=== PATIENT | male | born 1950 | race Caucasian/White ===

== ENCOUNTER 2017-08-29 07:39 | Day surgery (SDC) | payer MEDICARE, BC ==
[2017-08-27 14:24] LABS: BASOPHILS % (AUTO) 0.6 % (0-1); EOSINOPHILS # (AUTO) 0.2 X10'3 (0-0.9); EOSINOPHILS % (AUTO) 3.2 % (0-6); LYMPHOCYTES # (AUTO) 1.6 X10'3 (1.1-4.8); LYMPHOCYTES % (AUTO) 29.5 % (21-51); MEAN CORPUSCULAR HEMOGLOBIN 30.3 PG (27.0-31.0); MEAN CORPUSCULAR HGB CONC 34.6 % (33.0-36.5); MEAN CORPUSCULAR VOLUME 87.7 FL (78-98); MEAN PLATELET VOLUME 7.6 FL (7.4-10.4); MONOCYTES # (AUTO) 0.6 X10'3 (0-0.9); MONOCYTES % (AUTO) 10.6 % (2-12); NEUTROPHILS % (AUTO) 56.1 % (42-75); PRE OP HEMATOCRIT 46.3 % (42.0-52.0); PRE OP PLATELET COUNT 277 X10'3 (140-440); RED BLOOD COUNT 5.28 X10'6 (4.70-6.10); RED CELL DISTRIBUTION WIDTH 13.5 % (11.5-14.5)
[2017-08-27 14:38] LABS: ALBUMIN 4.1 G/DL (3.4-5.0); ALBUMIN/GLOBULIN RATIO 1.2 (1.1-1.5); ALKALINE PHOSPHATASE 71 IU/L (46-116); BLOOD UREA NITROGEN 18 MG/DL (7-18); BUN/CREATININE RATIO 18.2 (5.4-32.0); CALCIUM 9.3 MG/DL (8.5-10.1); CHLORIDE 103 MMOL/L (99-107); CREATININE 0.99 MG/DL (0.60-1.10); PRE OP ALT 35 U/L (30-65); PRE OP ANION GAP 9 (8-16); PRE OP AST 22 U/L (10-37); PRE OP BILIRUB, TOTAL 0.4 MG/DL (0.0-1.0); PRE OP GLUCOSE 104 MG/DL (70-104); PRE OP SODIUM 139 MMOL/L (135-145); TOTAL CARBON DIOXIDE 26.7 MMOL/L (24-32); TOTAL PROTEIN 7.5 G/DL (6.4-8.2); eGFR 75 ML/MIN
[~2017-08-29] VITALS: Ht 162.6 cm; Wt 76.7 kg
[~2017-08-29 07:39] MED LIST: BUPIVAcaine/PF 2.5 mg/ml (0.25%) 30ml vial ONE; CLOP75TA15 PO; GLUC1TAB40 PO; MULT-1141 PO; OMEG1CAP PO; [UNRECOGNIZED DRUG - CODE] PO; ceFAZolin 2gm in dextrose, iso 100 ML IV ONE; famotidine 20mg tablet PO ONE; ringers solution, lacted 1,000 ML IV SCH
[2017-08-29] MEDS ORDERED: LIDOcaine 0.5% (5mg/ml) 50ml vial ONE (08:44)
[2017-08-29] MEDS ORDERED: fentaNYL/PF 50MCG/1 ML 2ML syringe ONE (10:00)
[2017-08-29] MEDS ORDERED: midazolam 2 mg/2 ml injection ONE (10:00)
[2017-08-29] MEDS ORDERED: propofol inj 20 ML IV ONE (10:03)
[2017-08-29 10:48] VITALS: BP 143/94
[2017-08-29 10:51] VITALS: BP_SYST 141; BP_SYST 143; BP_DIAS 79; BP_DIAS 94
[2017-08-29] MEDS ORDERED: ringers solution, lacted 1,000 ML IV SCH (10:54)
[2017-08-29] MEDS ORDERED: fentaNYL/PF 50MCG/1 ML 2ML syringe IV PRN ×2 (10:55)
[2017-08-29] MEDS ORDERED: morphine 4 MG/ML inj SYRINge IV PRN ×2 (10:55)
[2017-08-29] MEDS ORDERED: meperidine/PF 50mg/ml syringe IV PRN (10:55)
[2017-08-29] MEDS ORDERED: proCHLORperazine 10 MG/2 ml inj IV PRN (10:55)
[2017-08-29] MEDS ORDERED: ondansetron/PF 4mg/2ml inj IV PRN (10:55)
[2017-08-29 11:01] VITALS: BP 131/85
[2017-08-29 11:11] VITALS: BP 132/76
[2017-08-29] MEDS ORDERED: HYDROcodone/acetaminophen 10/325mg tab PO PRN ×2 (11:20)
== END 2017-08-29 11:31 | disposition home or self-care (01) ==
LOC: PAS 07:39
PROVIDERS: ATTEND Orthopaedic Surgery Hand Surgery
DX: M18.11 Unilateral primary osteoarthritis of first carpometacarpal joint, right hand (principal); M25.741 Osteophyte, right hand; M20.091 Other deformity of right finger(s); I25.2 Old myocardial infarction; Z79.82 Long term (current) use of aspirin; Z98.52 Vasectomy status; Z98.890 Other specified postprocedural states; Z79.01 Long term (current) use of anticoagulants; Z72.89 Other problems related to lifestyle; Z79.899 Other long term (current) drug therapy; Z86.73 Personal history of transient ischemic attack (TIA), and cerebral infarction without residual deficits
CPT/HCPCS: 25445; 36415; 80053; 85025; 85610; 85730; 93005; A6449; C1713; J0690; J2001; J2250; J2704; J3010; J3490; J7120; L8630; A7000

== ENCOUNTER 2023-03-04 17:23 | Emergency (ER) | payer MEDICARE, OTHER ==
[~2023-03-04] VITALS: Ht 167.6 cm; Wt 77.4 kg
[~2023-03-04 17:23] MED LIST changes: +ASPI81TA52 PO; -BUPIVAcaine/PF 2.5 mg/ml (0.25%) 30ml vial ONE; +LOP25T PO; +NAPR1TAB28 PO; -OMEG1CAP PO; +OMEG1CAP61 PO; -ceFAZolin 2gm in dextrose, iso 100 ML IV ONE; -famotidine 20mg tablet PO ONE; -ringers solution, lacted 1,000 ML IV SCH
[2023-03-04 17:28] VITALS: TEMP 97.7
[2023-03-04 17:59] LABS: BASOPHILS # (AUTO) 0.1 X10'3 (0-0.2); BASOPHILS % (AUTO) 0.9 % (0-1); EOSINOPHILS # (AUTO) 0.1 X10'3 (0-0.9); EOSINOPHILS % (AUTO) 1.6 % (0-6); HEMATOCRIT 44.6 % (42.0-52.0); HEMOGLOBIN 15.4 g/dl (14.0-17.9); LYMPHOCYTES # (AUTO) 1.5 X10'3 (1.1-4.8); LYMPHOCYTES % (AUTO) 24.5 % (21-51); MEAN CORPUSCULAR HEMOGLOBIN 30.9 PG (27.0-31.0); MEAN CORPUSCULAR HGB CONC 34.5 g/dL (33.0-36.5); MEAN CORPUSCULAR VOLUME 89.6 FL (78-98); MEAN PLATELET VOLUME 7.3 FL (7.4-10.4); MONOCYTES # (AUTO) 0.6 X10'3 (0-0.9); MONOCYTES % (AUTO) 10.9 % (2-12); NEUTROPHILS # (AUTO) 3.7 X10'3 (1.8-7.7); NEUTROPHILS % (AUTO) 62.1 % (42-75); PLATELET COUNT 274 X10'3 (140-440); RED BLOOD COUNT 4.98 X10'6 (4.70-6.10); RED CELL DISTRIBUTION WIDTH 13.4 % (11.5-14.5); WHITE BLOOD COUNT 5.9 X10'3 (4.5-11.0)
[2023-03-04 18:11] LABS: APTT 29 SECONDS (22-32); PROTHROMBIN TIME 10.3 SECONDS (9.0-12.0)
[2023-03-04 18:14] LABS: ALANINE AMINOTRANSFERASE 35 U/L (12-78); ALBUMIN 3.9 G/DL (3.4-5.0); ALBUMIN/GLOBULIN RATIO 1.1 (1.1-1.5); ALKALINE PHOSPHATASE 68 IU/L (46-116); ANION GAP 9 (8-16); ASPARTATE AMINO TRANSFERASE 25 U/L (10-37); BILIRUBIN,TOTAL 0.3 MG/DL (0.1-1.0); BLOOD UREA NITROGEN 12 MG/DL (7-18); BUN/CREATININE RATIO 11.3 (10.0-20.0); CALCIUM 9.5 MG/DL (8.5-10.1); CHLORIDE 104 MMOL/L (99-107); CREATININE 1.06 MG/DL (0.60-1.10); GLUCOSE 104 MG/DL (70-104); POTASSIUM 3.9 MMOL/L (3.5-5.1); SODIUM 138 MMOL/L (135-145); TOTAL CARBON DIOXIDE 25.3 MMOL/L (24-32); TOTAL PROTEIN 7.4 G/DL (6.4-8.2); eCRCL 54 ML/MIN; eGFR 68 ML/MIN
[2023-03-04 19:52] LABS: BILIRUBIN,URINE NEGATIVE (Neg); CLARITY,URINE CLEAR (Clear); COLOR,URINE YELLOW (Yellow); GLUCOSE, URINE NEGATIVE (Neg); KETONES,URINE NEGATIVE (Neg); LEUKOCYTE ESTERASE ,URINE NEGATIVE (Neg); NITRITES, URINE NEGATIVE (Neg); OCCULT BLOOD,URINE NEGATIVE (Neg); PH,URINE 6.5 (4.8-8.0); PROTEIN,URINE NEGATIVE (Neg); UROBILINOGEN,URINE 0.2 E.U/dL (0.2-1.0)
[2023-03-04 20:04] LABS: UA COLLECTION TYPE VOIDED
[2023-03-04 21:31] VITALS: BP 142/95; PULSE 61; RESP 18; O2SAT 96
== END 2023-03-04 21:28 | disposition home or self-care (01) ==
LOC: ER 17:24
DX: R20.0 Anesthesia of skin (principal); E78.00 Pure hypercholesterolemia, unspecified; Z79.899 Other long term (current) drug therapy
CPT/HCPCS: 36415; 70450; 71045; 80053; 81003; 82948; 84145; 85025; 85610; 85730; 93005; 99285

== ENCOUNTER 2024-02-25 03:30 | Emergency (ER) | payer MEDICARE, OTHER ==
[~2024-02-25] VITALS: Ht 167.6 cm; Wt 70.5 kg
[2024-02-25 03:32] VITALS: TEMP 97.7
[2024-02-25 04:08] LABS: BASOPHILS % (AUTO) 0.8 % (0-1); EOSINOPHILS # (AUTO) 0.1 X10'3 (0-0.9); EOSINOPHILS % (AUTO) 2.7 % (0-6); HEMATOCRIT 44.5 % (42.0-52.0); HEMOGLOBIN 14.8 g/dl (14.0-17.9); LYMPHOCYTES # (AUTO) 1.2 X10'3 (1.1-4.8); LYMPHOCYTES % (AUTO) 30.9 % (21-51); MEAN CORPUSCULAR HEMOGLOBIN 30.1 PG (27.0-31.0); MEAN CORPUSCULAR HGB CONC 33.2 g/dL (33.0-36.5); MEAN CORPUSCULAR VOLUME 90.7 FL (78-98); MEAN PLATELET VOLUME 7.2 FL (7.4-10.4); MONOCYTES # (AUTO) 0.5 X10'3 (0-0.9); MONOCYTES % (AUTO) 13.8 % (2-12); NEUTROPHILS % (AUTO) 51.8 % (42-75); PLATELET COUNT 253 X10'3 (140-440); RED BLOOD COUNT 4.91 X10'6 (4.70-6.10); RED CELL DISTRIBUTION WIDTH 13.5 % (11.5-14.5)
[2024-02-25 04:17] LABS: ALANINE AMINOTRANSFERASE 27 U/L (12-78); ALBUMIN 3.5 G/DL (3.4-5.0); ALBUMIN/GLOBULIN RATIO 1.1 (1.1-1.5); ALKALINE PHOSPHATASE 59 IU/L (46-116); ANION GAP 8 (8-16); ASPARTATE AMINO TRANSFERASE 25 U/L (10-37); BILIRUBIN,TOTAL 0.4 MG/DL (0.1-1.0); BLOOD UREA NITROGEN 17 MG/DL (7-18); BUN/CREATININE RATIO 16.5 (10.0-20.0); CALCIUM 9.1 MG/DL (8.5-10.1); CHLORIDE 104 MMOL/L (99-107); CREATININE 1.03 MG/DL (0.60-1.10); GLUCOSE 102 MG/DL (70-104); POTASSIUM 3.7 MMOL/L (3.5-5.1); SODIUM 138 MMOL/L (135-145); TOTAL CARBON DIOXIDE 26.3 MMOL/L (24-32); TOTAL PROTEIN 6.6 G/DL (6.4-8.2); eCRCL 55 ML/MIN; eGFR 70 ML/MIN
[2024-02-25 04:26] LABS: PRO BRAIN NATRIURETIC PEPTIDE 133 PG/ML (0-450)
[2024-02-25 05:07] VITALS: BP 162/96; PULSE 59; RESP 17; O2SAT 96
== END 2024-02-25 05:08 | disposition home or self-care (01) ==
LOC: ER 03:32
DX: R07.9 Chest pain, unspecified (principal); E78.00 Pure hypercholesterolemia, unspecified; Z79.82 Long term (current) use of aspirin; Z79.899 Other long term (current) drug therapy; Z86.73 Personal history of transient ischemic attack (TIA), and cerebral infarction without residual deficits
CPT/HCPCS: 36415; 71045; 80053; 83880; 84484; 85025; 93005; 99285

== ENCOUNTER 2024-07-20 09:44 | Emergency (ER) | payer MEDICARE, OTHER ==
[~2024-07-20] VITALS: Ht 170.2 cm; Wt 77.3 kg
[2024-07-20] MEDS ORDERED: LIDO700A32 TOP (10:56)
[2024-07-20] MEDS: LIDOcaine 5% patch TP ONE (10:56)
[2024-07-20] MEDS: ketorolac trometh 15mg/ml vial 15 MG/ML ML IM ONE (10:56)
[2024-07-20 11:23] VITALS: BP 142/68; PULSE 64; RESP 16; TEMP 97.8; O2SAT 97
== END 2024-07-20 11:24 | disposition home or self-care (01) ==
LOC: ER 09:44
DX: R07.89 Other chest pain (principal); E78.00 Pure hypercholesterolemia, unspecified; Z86.73 Personal history of transient ischemic attack (TIA), and cerebral infarction without residual deficits; Z79.82 Long term (current) use of aspirin
CPT/HCPCS: 71101; 96372; 99284; J1885

== ENCOUNTER 2024-12-03 14:56 | Emergency (ER) | payer MEDICARE, OTHER ==
[~2024-12-03] VITALS: Ht 167.6 cm; Wt 76.0 kg
[~2024-12-03 14:56] MED LIST changes: +LIDO-52 TOP
[2024-12-03 15:01] VITALS: BP 162/84; PULSE 77; RESP 16; TEMP 98; O2SAT 97
--- NOTE | 2024-12-03 15:08 | ELECTROCARDIOGRAPH REPORT ---
[facility] Test Date: 2024-12-03 Test Time: 14:57:17 Pat Name: MARCELLO CASTILLO Department: EMERGENCY ROOM Room: Gender: M Sanforizer: PM : 1950 Requested By: MARCELLO MARROQUIN Order Number: [id number] Reading MD: Dr. Cheo Swnason Measurements Intervals [place] Rate: 79 P: 5 HI: 204 QRS: -39 QRSD: 119 T: 97 QT: 375 QTc: 430 Interpretive Statements A-V dual-paced complexes w/ some inhibition No further analysis attempted due to paced rhythm Baseline wander in lead(s) V1 Electronically Signed On 12-03-2024 18:16:[address] Cheo Swanson Please click the below link to view image of tracing.
--- NOTE | 2024-12-03 15:34 | RADIOLOGY REPORT ---
CHEST RADIOGRAPH Indication: CP Technique: Single frontal view of the chest was obtained COMPARISON: DI CHEST,SINGLE VIEW on DOS: 02/25/24, DI CHEST,SINGLE VIEW on DOS: 03/04/23, CHEST,SINGL E VIEW on DOS: 06/27/19 FINDINGS: Lines and Tubes: None Lungs: Clear Pleura: No effusion. No pneumothorax. Cardiomediastinal contours: Unremarkable Bones: Unremarkable IMPRESSION: No acute disease.
[2024-12-03 16:24] LABS: MEAN PLATELET VOLUME 7.6 FL (7.4-10.4); RED CELL DISTRIBUTION WIDTH 13.3 % (11.5-14.5)
[2024-12-03 16:31] LABS: CREATININE 1.02 MG/DL (0.60-1.10); PRO BRAIN NATRIURETIC PEPTIDE 69 PG/ML (0-450); TOTAL CARBON DIOXIDE 25.0 MMOL/L (24-32); eCRCL 56 ML/MIN; eGFR 71 ML/MIN
--- NOTE | 2024-12-03 17:01 | Physician Documentation ---
History of Present Illness ~ Chief Complaint: Chest Pain Stated Complaint: CP Time Seen by MD: 16:53 Primary Medical Doctor: RAMONE JAY (NEURO-[place]) HPI Patient is seen today with complaints of chest pain for a day or so. Patient denies any significant aggravating or relieving factors. Patient states the chest pain has actually resolved significantly since being here in the ED. patient does admit to history of TIAs multiple in the past but denies any previous FL. patient denies any arm pain. Patient denies any nausea or vomiting or abdominal pain or shortness of breath or any other symptoms. Patient admits to previous hernia surgery a couple of months ago. He has no other concern or complaint at this time. Medication Reconciliation Allergies: Coded Allergies: No Known Allergies (Unverified , 12/03/24) Scheduled Aspirin (Aspirin EC), 1 TAB PO DAILY, (Reported) Clopidogrel Bisulfate (Plavix), 75 MG PO DAILY, (Reported) Gluc Hcl/Msm/C/Mn/[place]/Ging (Msm Glucosamine Complex Tab), 1 EACH PO DAILY, (Reported) Lamotrigine (Lamotrigine), 200 MG PO BID, (Reported) Lidocaine (Lidoderm), 1 PATCH TOP DAILY Metoprolol Tartrate* (Lopressor tablet*), 0.5 TAB PO Q12H Mu-Vits-Min Th/Lycopene/Lutein (Centrum Silver Tablet), 1 EACH PO DAILY, (Reported) [place]-3 Acid Ethyl Esters* (Lovaza*), 1 GM PO DAILY, (Reported) Miscellaneous Medications Naproxen Na-Diphenhydramin HCl (Aleve Pm Caplet), 2 TAB PO, (Reported) Past Medical History Past Medical History: CVA/TIA/Stroke, Seizures, *CARDIOVASCULAR*, High Cholesterol Past Surgical History: noncontributory Alcohol Use: None Drug Use: none Lives with: Spouse Lives In: Home Review of Systems Constitutional: Denies: chills, fever, weakness Eyes: Denies: pain, blurred vision ENT: Denies: ear pain, nose pain, throat pain, mouth pain Respiratory: Denies: cough, shortness of breath Cardiovascular: Denies: chest pain, palpitations Gastrointestinal: Denies: abdominal pain, nausea, vomiting Genitourinary: Denies: burning, dysuria Male Genitalia: Denies: penile discharge, testicular pain Neurological: Denies: headache, dizziness Musculoskeletal: Denies: pain, swelling Integumentary: Denies: rash, lesions Allergic/Immunologic: Denies: hives, itching Hematologic/Lymphatic: Denies: no symptoms reported Psychiatric: Denies: depression, anxiety Physical Exam Vital Signs: Temperature: 98.0, Source: Temporal, Heart Rate: 77, Respiratory Rate: 16, BP: 162/84, Pulse Oximetry: 97, Weight: 76.000 Oxygen Flow Rate: 0 Progress Results/Orders Results/Orders Vital Signs 12/03/24 15:01 Temp 98.0 Pulse 77 Resp 16 B/P (MAP) 162/84 Pulse Ox 97 O2 Flow Rate 0 Laboratory Tests Test 12/03/24 16:01 White Blood Count 4.8 Red Blood Count 4.79 Hemoglobin 14.7 Hematocrit 42.4 Mean Corpuscular Volume 88.5 Mean Corpuscular Hemoglobin 30.8 Mean Corpuscular Hemoglobin Concent 34.7 Red Cell Distribution Width 13.3 Platelet Count 292 Mean Platelet Volume 7.6 Neutrophils (%) (Auto) 66.6 Lymphocytes (%) (Auto) 20.7 L Monocytes (%) (Auto) 10.3 Eosinophils (%) (Auto) 1.4 Basophils (%) (Auto) 1.0 Neutrophils # (Auto) 3.2 Lymphocytes # (Auto) 1.0 L Monocytes # (Auto) 0.5 Eosinophils # (Auto) 0.1 Basophils # (Auto) 0.0 CBC Comment Sodium Level 135 Potassium Level 3.8 Chloride Level 104 Carbon Dioxide Level 25.0 Anion Gap 6 L Blood Urea Nitrogen 19 H Creatinine 1.02 Estimated GFR/1.73 m2 71 BUN/Creatinine Ratio 18.6 Glucose Level 141 H Calcium Level 8.8 Troponin I High Sensitivity 12 Pro-B-Type Natriuretic Peptide 69 Albumin 3.9 Chemistry Comments EKG/XRAY/CT/US/VASC/MRI EKG : Additional Comment EKG interpreted by myself today shows regular rate at 79 beats per minute, AV dual paced complexes, no ST segment elevation or sign of ischemia. Chest X-Ray : Additional Comments X-ray interpreted by myself today shows no sign of large effusion, no large infiltrate, normal mediastinum. DIAGNOSTIC RADIOLOGY Patient: MARCELLO CASTILLO Medical Record: [id number] [facility] : 1950, Age: 74 Sex: Male Location: ER Patient Status: REG ER Service Date/Time: 12/03/24/ 1506 Ordering Physician: MARCELLO MARROQUIN MD Exam: CHEST,SINGLE VIEW CHEST RADIOGRAPH Indication: CP Technique: Single frontal view of the chest was obtained COMPARISON: DI CHEST,SINGLE VIEW on DOS: 02/25/24, DI CHEST,SINGLE VIEW on DOS: 03/04/23, CHEST,SINGLE VIEW on DOS: 06/27/19 FINDINGS: Lines and Tubes: None Lungs: Clear Pleura: No effusion. No pneumothorax. Cardiomediastinal contours: Unremarkable Bones: Unremarkable IMPRESSION: No acute disease. Electronically Signed by:MYNOR IVORY MD Date & Time: 12/03/24 1532 Dictated by: MYNOR IVORY MD Dictation date and time: 12/03/24 1510 Primary Care Provider: NO PRIMARY CARE PROVIDER cc: MARCELLO MARROQUIN MD ~ Heart Score: Heart Score Response (Comments) Value History Slightly Suspicious 0 EKG Normal 0 Age >65 2 Risk Factors 1 or 2 risk factors 1 Troponin Normal limit 0 Total 3 Medical Decision Making Findings Patient is seen today with complaints of chest pain for a day or so. Patient denies any significant aggravating or relieving factors. Patient states the chest pain has actually resolved significantly since being here in the ED. patient does admit to history of TIAs multiple in the past but denies any previous FL. patient denies any arm pain. Patient denies any nausea or vomiting or abdominal pain or shortness of breath or any other symptoms. Patient admits to previous hernia surgery a couple of months ago. He has no other concern or complaint at this time. Patient did have unremarkable EKG findings and chest x-ray unremarkable and troponins negative. Patient declined 2nd troponin draw. Patient declined admission for further eval by hospitalist. Patient will follow up with primary care for referral to Cardiology for further eval and treatment. Patient will return to ED with any worsening, concerning or changing symptoms. Departure Disposition: HOME / SELF CARE / HOMELESS Impression: Primary Impression: Chest pain Qualified Codes: R07.9 - Chest pain, unspecified Condition: Improved Discharge Instructions: Nonspecific Chest Pain, Adult Additional Instructions: Patient did have unremarkable EKG findings and chest x-ray unremarkable and troponins negative. Patient declined 2nd troponin draw. Patient declined admission for further eval by hospitalist. Patient will follow up with primary care for referral to Cardiology for further eval and treatment. Patient will return to ED with any worsening, concerning or changing symptoms. Referrals: NO PRIMARY CARE PROVIDER (PCP) Additional Comment Additional Comment Patient declined admission for further eval and treatment by hospitalist team. Signature Scribe Signature: No scribe Attestation: No scribe [facility] Dec 03, 2024 17:01
== END 2024-12-03 17:24 | disposition home or self-care (01) ==
LOC: ER 14:56
DX: R07.9 Chest pain, unspecified (principal); E78.00 Pure hypercholesterolemia, unspecified; R06.02 Shortness of breath
CPT/HCPCS: 36415; 71045; 80048; 83880; 84484; 85025; 93005; 99285

== ENCOUNTER 2025-01-04 09:09 | Inpatient (IN) | payer MEDICARE, OTHER ==
[~2025-01-04] VITALS: Ht 167.6 cm; Wt 74.7 kg
--- NOTE | 2025-01-04 09:31 | Physician Documentation ---
History of Present Illness ~ Chief Complaint: Stroke Alert Stated Complaint: LEFT SIDE NUMBNESS Time Seen by MD: 09:27 Primary Medical Doctor: ARMONE JAY (NEURO-[place]) HPI 74-year-old male, history of reported TIA and seizures, who presents with left- sided weakness He tells me he felt normal when he woke up this morning. His symptoms started at around 8:00 a.m.. He says he was outside, when he felt like he could not move his left side normal. He reports having left-sided headache, and his left arm and leg were not working normal. He thought he was going to fall down. Currently, he feels a little bit better. He still has some pain in the left side of his head and feels like the left side of his body is numb. He denies any current visual changes. No trouble with speaking clearly. He is able to move his arms and legs currently. His states that when she saw him he seemed a little bit disoriented and seemed to have some trouble talking. He is on lamotrigine for a very distant history of seizures Medication Reconciliation Allergies: Coded Allergies: No Known Allergies (Unverified , 12/03/24) Scheduled Aspirin (Aspirin EC), 1 TAB PO DAILY, (Reported) Clopidogrel Bisulfate (Plavix), 75 MG PO DAILY, (Reported) Diltiazem HCl (Diltiazem ER), 1 CAP PO DAILY, (Reported) Gluc Hcl/Msm/C/Mn/[place]/Ging (Msm Glucosamine Complex Tab), 1 EACH PO DAILY, (Reported) Lamotrigine (Lamotrigine), 200 MG PO BID, (Reported) Lidocaine (Lidoderm), 1 PATCH TOP DAILY Miscellaneous Medications Naproxen Na-Diphenhydramin HCl (Aleve Pm Caplet), 2 TAB PO, (Reported) Discontinued Medications Metoprolol Tartrate* (Lopressor tablet*), 0.5 TAB PO Q12H Discontinued Reason: patient no longer taking Mu-Vits-Min Th/Lycopene/Lutein (Centrum Silver Tablet), 1 EACH PO DAILY, (Reported) Discontinued Reason: patient no longer taking [place]-3 Acid Ethyl Esters* (Lovaza*), 1 GM PO DAILY, (Reported) Discontinued Reason: patient no longer taking Past Medical History Past Medical History: CVA/TIA/Stroke, Seizures, *CARDIOVASCULAR*, High Cholesterol Past Surgical History: noncontributory Alcohol Use: None Drug Use: none Lives with: Spouse Lives In: Home Review of Systems Constitutional: Denies: fever Neurological: Reports: headache, left sided numbness, left sided weakness Physical Exam Vital Signs: Temperature: 98.0, Source: Temporal, Heart Rate: 75, Respiratory Rate: 18, BP: 167/104, Pulse Oximetry: 96, Weight: 74.650 Oxygen Flow Rate: 0 General Appearance General: This is a pleasant and alert older man sitting comfortably in a chair, at bedside HEENT: Atraumatic, oropharynx is moist Heart: Regular rate and rhythm, normal-appearing peripheral perfusion Lungs: normal work of breathing, normal oxygen saturation on room air Neuro: Alert and oriented, speech is clear currently. Possible mild left lower facial droop. Normal sensation to light touch in the distributions of the face. Grossly normal strength in the upper and lower extremities. No reported numbness to light touch in the left arm or leg. Psychiatric: Calm and cooperative with exam Progress Results/Orders Results/Orders Orders - NAOMIE TIDWELL MD Monitor (01/04/25 09:22) 2 Large Bore Ivs (01/04/25 09:22) Chest,Single View (01/04/25 09:22) Accucheck (01/04/25 09:22) Ct Stroke Alert (01/04/25 09:37) BMP (01/04/25 09:22) [place] Prov.Neuro Consult (01/04/25 09:22) Cta Neck/Head (01/04/25 09:37) Page Hospitalist (01/04/25 09:48) Hgb A1c (01/04/25 09:24) TSH (01/04/25 09:24) Completed Orders - NAOMIE TIDWELL MD Cbc/Diff (01/04/25 09:22) Electrocardiogram (01/04/25 09:22) Chest,Single View (01/04/25 09:22) Ct Stroke Alert (01/04/25 09:37) PTT (01/04/25 09:22) Pt Inr (01/04/25 09:22) Cta Neck/Head (01/04/25 09:37) Aspirin 81mg Chew Tablet (Aspirin 81mg C (01/04/25 09:50) Clopidogrel Tablet (Plavix Tablet) (01/04/25 09:50) Medications Received in ER Medications (Trade) Dose Ordered Sig/Major Route PRN Reason Start Time Stop Time Status Last Admin Dose Admin Sodium Chloride 1,000 ml @ 70 mls/hr [id number] IV 01/04/25 11:25 01/04/25 15:30 70 MLS/HR Vital Signs 01/04/25 01/04/25 01/04/25 01/04/25 09:16 10:11 10:17 11:00 Temp 98.0 Pulse 75 62 55 Resp 18 10 14 B/P (MAP) 167/104 144/88 139/79 Pulse Ox 96 97 96 O2 Flow Rate 0 Laboratory Tests Test 01/04/25 09:23 01/04/25 09:24 Glucometer 104 White Blood Count 3.5 L Red Blood Count 5.14 Hemoglobin 15.6 Hematocrit 45.8 Mean Corpuscular Volume 89.1 Mean Corpuscular Hemoglobin 30.3 Mean Corpuscular Hemoglobin Concent 34.0 Red Cell Distribution Width 13.8 Platelet Count 269 Mean Platelet Volume 7.3 L Neutrophils (%) (Auto) 51.8 Lymphocytes (%) (Auto) 30.4 Monocytes (%) (Auto) 14.3 H Eosinophils (%) (Auto) 2.3 Basophils (%) (Auto) 1.2 H Neutrophils # (Auto) 1.8 Lymphocytes # (Auto) 1.1 Monocytes # (Auto) 0.5 Eosinophils # (Auto) 0.1 Basophils # (Auto) 0.0 CBC Comment Prothrombin Time 10.2 INR International Normalized Ratio 1.0 Activated Partial Thromboplast Time 27 Coagulation Comments Sodium Level 138 Potassium Level 4.1 Chloride Level 105 Carbon Dioxide Level 25.1 Anion Gap 8 Blood Urea Nitrogen 11 Creatinine 0.80 Estimated GFR/1.73 m2 > 90 BUN/Creatinine Ratio 13.8 Glucose Level 111 H Hemoglobin A1c 5.8 Calcium Level 9.1 Albumin 3.9 Chemistry Comments EKG/XRAY/CT/US/VASC/MRI EKG : Additional Comment I personally interpreted the EKG and this shows: Sinus rhythm, rate 62, QTC 443, no STEMI Chest X-Ray : Additional Comments I personally reviewed the x-ray, and it shows: No focal consolidation, no mediastinal widening or pneumothorax CT : Impression I personally reviewed the CT scan, and this shows no intracranial hemorrhage. N o large vessel occlusion on the CTA Consults/PCP Consults/PCP : Additional Comment Consult: I spoke to [facility] Neurology. They evaluated the patient, and feel that this is likely a small stroke, but not a TNK candidate. They recommend aspirin, Plavix, and admission for MRI and further stroke workup. Consult: I spoke to the internal medicine service, for admission in the hospital Medical Decision Making Additional Information The patient presents as a stroke alert. On exam he does have a history that was very concerning for a stroke or TIA, with some residual left-sided symptoms and possible mild facial droop. He was taken for emergent brain imaging which is unremarkable. Stroke Neurology was immediately consulted and recommended against TNK. He was given aspirin and Plavix. No other concerning findings on his workup in the ER. He will be admitted to the medicine service for further treatment. Departure Impression: Primary Impression: Left-sided weakness Additional Impression: Stroke Referrals: NO PRIMARY CARE PROVIDER (PCP) Critical Care Note Critical Care Note Critical Care Note The very real possibility of a deterioration of this patient's condition required the highest level of my preparedness for sudden, emergent intervention. I provided critical care services, which included medication orders, frequent reevaluations of the patient's condition and response to treatment, ordering and reviewing test results, and discussing the case with various consultants. Excludes time spent performing separately billable procedures. The critical care time associated with the care of the patient was 45 minutes in the management of an acute stroke Signature Scribe Signature: dodie Attestation: NAOMIE Fournier MD Jan 04, 2025 09:31
[2025-01-04 09:32] LABS: MEAN PLATELET VOLUME 7.3 FL (7.4-10.4); RED CELL DISTRIBUTION WIDTH 13.8 % (11.5-14.5)
--- NOTE | 2025-01-04 09:47 | RADIOLOGY REPORT ---
EXAM: CT CT STROKE ALERT INDICATION: Stroke Alert TECHNIQUE: CT of the head without intravenous contrast. Radiation Dose : 1. Head: CT Dose: CTDI volume is 61.9 mGy. Dose-length product is 1166 mGy*cm The dose indicators for CT are the volume Computed Tomography (CT) Dose Index (CTDIvol) and the Dose Length Product (DLP), and are measured in units of mGy and mGy-cm, respectively. These indicators are not patient dose, but values generated from the CT scanner acquisition factors. The report includes radiation exposure data for exposures received during this examination. COMPARISON: CT CT STROKE ALERT on DOS: 03/04/23 FINDINGS: There is no evidence of acute intracranial hemorrhage, extra-axial collection, mass effect, midline s hift, herniation or hydrocephalus. The ventricles, sulci and cisterns are age appropriate. The aguillon-white differentiation is intact. Patchy periventricular and subcortical white matter hypoattenuation is nonspecific but may be related to small vessel ischemic disease. The visualized paranasal sinuses and mastoid air cells are clear. The surrounding soft tissues and osseous structures are unremarkable. IMPRESSION: No acute intracranial abnormality. Radiation optimization: All CT scans at this facility use at least one of these dose optimization yashira hniques: automated exposure control mA and/or kV adjustment per patient size (includes targeted exam s where dose is matched to clinical indication) or iterative reconstruction.
[2025-01-04 09:49] LABS: CREATININE 0.80 MG/DL (0.60-1.10); TOTAL CARBON DIOXIDE 25.1 MMOL/L (24-32); eCRCL 71 ML/MIN; eGFR > 90 ML/MIN
[2025-01-04 09:53] LABS: APTT 27 SECONDS (22-32); INR 1.0 INR
--- NOTE | 2025-01-04 10:02 | ELECTROCARDIOGRAPH REPORT ---
[facility] Test Date: 2025-01-04 Test Time: 10:00:17 Pat Name: MARCELLO CASTILLO Department: [facility]- Patient ID: [facility]-[id number] Room: Gender: M Attendant [place]: [place] : 1950 Requested By: NAOMIE TIDWELL Order Number: [id number] Reading MD: Measurements Intervals [place] Rate: 62 P: 37 KS: 213 QRS: -35 QRSD: 121 T: 103 QT: 436 QTc: 443 Interpretive Statements Sinus rhythm Borderline prolonged [place] interval Probable left atrial enlargement Left ventricular hypertrophy Baseline wander in lead(s) III,aVL Please click the below link to view image of tracing.
--- NOTE | 2025-01-04 10:07 | RADIOLOGY REPORT ---
CLINICAL INFORMATION: Stroke. TECHNIQUE: Axial CTA images of the head and neck were obtained after the uneventful administration o f 100 mL Omnipaque 350 IV contrast. Coronal and sagittal reformatted images and MIP images were obtai lucien, reviewed, and stored. Measurements of carotid stenosis are made per NASCET criteria. All CT scan s at this medical facility are performed using dose modulation techniques as appropriate to a perform ed exam including the following: Automated exposure control was utilized; adjustment of the MA and/or KV according to patient size; and use of iterative reconstruction technique. CTDIvol = 15.59, 17, 0.14 mGy DLP = 611.49 mGy-cm COMPARISON: Same-day noncontrast enhanced CT head. FINDINGS: CTA HEAD: origin of the bilateral case therapist incidentally noted. Posterior cerebral arteries, basilar artery, and intracranial segments of the distal vertebral arteries are otherwise normal in caliber a nd course with no evidence of aneurysm, large vessel occlusion, significant stenosis, or vascular mal formation. The anterior and middle cerebral arteries and intracranial segments of the distal internal carotid arteries are normal in caliber and course with no evidence of aneurysm, large vessel occlusi on, significant stenosis, or vascular malformation. CTA NECK: Normal configuration of the aortic arch with patent origins of the brachiocephalic artery, left common carotid artery, and left subclavian artery. Moderate calcified and noncalcified plaque at the aortic arch. Subclavian arteries are patent with no significant stenosis. Mild calcified plaque at the carotid bifurcations and proximal internal carotid arteries bilaterally without significant st enosis. The bilateral common carotid, internal carotid, and external carotid arteries are otherwise p atent with no significant stenosis or evidence of dissection. Vertebral arteries are patent with no s ignificant stenosis or evidence of dissection. Heterogeneous thyroid gland with heterogeneous nodule along the posterior aspect of the left thyroid lobe measuring up to 2.2 cm. Multilevel degenerative d isc disease in the cervical spine with associated areas of moderate to severe disc space narrowing, e ndplate sclerosis, and endplate spurring. IMPRESSION: 1. CTA head demonstrates no evidence of large vessel occlusion, aneurysm, or significant stenosis. 2. CTA neck demonstrates no evidence of carotid or vertebral dissection or significant stenosis. 3. Thyroid nodule as described above. Further evaluation with ultrasound recommended per ACR white pa per on incidentally detected thyroid nodules. 4. Additional findings as detailed above.
--- NOTE | 2025-01-04 10:14 | RADIOLOGY REPORT ---
CHEST RADIOGRAPH Indication: Stroke Alert Technique: Single frontal view of the chest was obtained Comparison: DI CHEST,SINGLE VIEW on DOS: 12/03/24, DI UNI RIBS WITH PA CHEST on DOS: 07/20/24, DI CHEST ,SINGLE VIEW on DOS: 02/25/24, DI CHEST,SINGLE VIEW on DOS: 03/04/23, CHEST,SINGLE VIEW on DOS: FINDINGS: Lines and Tubes: None Lungs: No focal consolidation. Pleura: No effusion. No pneumothorax. Cardiomediastinal contours: Unremarkable Bones: No acute osseous abnormality. IMPRESSION: No acute cardiopulmonary disease.
[2025-01-04] MEDS: clopidogrel 300mg tablet PO ONE (11:15)
[2025-01-04] MEDS ORDERED: magnesium hydroxide 30ml (MOM) UD suspension PO PRN (11:25)
[2025-01-04] MEDS ORDERED: mag hydrox/Alum hydrox/simeth 30ml oral suspension PO PRN (11:25)
[2025-01-04] MEDS ORDERED: ondansetron/PF 4mg/2ml inj IV PRN (11:25)
[2025-01-04] MEDS ORDERED: magnesium sulf-water 4G/100mL 100 ML IV PRN (11:25)
[2025-01-04] MEDS ORDERED: potassium Cl 40MEQ/1/2NS 520ml 520 ML IV PRN (11:25)
[2025-01-04] MEDS ORDERED: potassium Cl 20 mEq SR tablet PO PRN ×2 (11:25)
[2025-01-04] MEDS ORDERED: magnesium Cl slow-release 64mg tablet PO PRN (11:25)
[2025-01-04] MEDS ORDERED: magnesium sulf-water 2g/50mL 50 ML IV PRN (11:25)
--- NOTE | 2025-01-04 12:07 | [facility] CONSULT REPORT ---
[facility] Procedure Note [facility] Procedure Note Consult [facility] Note # Demographics Consult Type: Acute Stroke Level 1 (0-4.5 hrs) Patient Location: Emergency Room First Name: Rolly Last Name: Josias Date of : 1950 Age: 74 Gender: Male Facility: [facility] Time of Initial Page (): 01/04/2025 09:22 First Contact with Site (): 01/04/2025 09:23 # HPI Chief Complaint: - weakness (focal) History: 74M with prior TIA, seizures on lamictal presents with left-sided weakness/numbness. LKWT 0800. Was outside when suddenly felt like he couldnt use his left-side normally. Also left-sided headache and facial numbness. Improved in ED. # Scores Time of exam and NIHSS (): 01/04/2025 09:41 Level of Consciousness 1a: [0] = Alert; keenly responsive LOC Questions 1b: [0] = Answers both questions correctly LOC Commands 1c: [0] = Performs both tasks correctly Best Gaze 2: [0] = Normal Visual 3: [0] = No visual loss Facial Palsy 4: [0] = Normal symmetrical movements Motor Arm Left 5a: [0] = No drift Motor Arm Right 5b: [0] = No drift Motor Leg Left 6a: [1] = Drift Motor Leg Right 6b: [0] = No drift Limb Ataxia 7: [0] = Absent Sensory 8: [1] = Uzsy-ei-iedlozso sensory loss Best Language 9: [0] = No aphasia Dysarthria 10: [0] = Normal Extinction and Inattention 11: [0] = No abnormality NIHSS Total: 2 # Data Time Head CT personally read by me (): 01/04/2025 09:[address]: - no bleed - preliminarily reviewed by me, please refer to radiology read for official reading Time CTA personally reviewed by me (): 01/04/2025 09:41 CTA Head: - no large vessel occlusion - preliminarily reviewed by me, please refer to radiology read for official reading CTA Neck: - patent vessels - preliminarily reviewed by me, please refer to radiology read for official reading # Assessment Impression: - Ischemic Stroke (Acute) # Plan Thrombolytic/Intervention: NOT IV Thrombolysis or IA Intervention candidate Thrombolytic Exclusion (< 3 hour window): - Individualized disability discussion had with the patient and/or family, and they have determined the current deficits to be non-disabling and do not wish to proceed with thrombolytic Intraarterial Exclusion: - no large vessel occlusion (LVO) - non-disabling Target Blood Pressure: - SBP < 220 - DBP < 105 Labs: - hemoglobin A1c - lipid panel Imaging: (urgency: routine): - MRI Brain without contrast Diagnostic Test: - echo without bubble study Therapy/Evaluation: - PT/OT evaluation - speech/swallow consultation Medication: ASA 325 x1 then 81 daily Plavix 300 x1 then 75 daily x3 weeks Atorvastatin 80, then tailor to LDL < 70 goal DVT Prophylaxis: - SCD - chemical DVT prophylaxis Other: - If patient has any neurological deterioration please call me back immediately - permissive hypertension - telemetry monitoring - I have discussed my recommendations with the referring provider Disposition: admit # Logistics Attestation of consult completion: The patient is located at: [facility]. Facility staff participated in the visit. I performed this telemedicine visit from my offsite office utilizing interactive 2 way audio and visual telecommunication technology at the request of the onsite emergency room provider. Consent: Verbal consent was obtained from the patient and/or family for this encounter. Total time spent in telemedicine encounter: I spent 10 minutes reviewing clinical data and/or imaging, obtaining history, examining the patient, communicating with the onsite care team, and in preparation of this report. Electronically signed at 01/04/2025 12:06 ([place] Time) by Hemant Anand MD Neuro Consult Order placed for: Yes HEMANT ANAND MD Jan 04, 2025 12:06
[2025-01-04 15:30] VITALS: BP 157/73; PULSE 63; RESP 18; TEMP 97; O2SAT 97
[2025-01-04] MEDS: normal saline 1000ml 1,000 ML IV SCH (15:30)
[2025-01-04 16:12] VITALS: RESP 18; O2SAT 97
[2025-01-04] MEDS ORDERED: DILT120C20 PO (17:07)
--- NOTE | 2025-01-04 17:40 | HISTORY AND PHYSICAL-Residence ---
History & Physical Providers to CC Resident Creating Document: ALENA MILLER, RES ~ History of Present Illness Primary Medical Doctor: RAMONE JAY ([facility]) Reason for Admit\Complaint: Left facial numbness and left extremity weakness History of Present Illness A 74-year-old male with a history of two prior TIAs (2013, 2015), seizure disorder (diagnosed 13 years ago, controlled on lamotrigine), and hypertension who presented to the emergency department with acute-onset left-sided weakness and numbness. On the morning of presentation, while washing his car, he suddenly developed numbness of the left side of his face and weakness of the left arm and leg, leading to a loss of balance and a fall. He did not hit his head or lose consciousness. The event occurred at approximately 8:00 AM, and the patient arrived at the ED at 8:30 AM. He reports persistent numbness and weakness on the left side at presentation, along with mild left facial droop. There were no associated symptoms of headache, vision changes, slurred speech, chest pain, palpitations, shortness of breath, or bowel/bladder incontinence. His prior medical history includes: TIA (2013, 2015): resolved without residual deficits. Seizure disorder: on lamotrigine, seizure-free for 13 years. Hypertension: previously on Lopressor, currently on diltiazem (patient unsure of reason for switch). Hyperlipidemia: history of statin intolerance due to arthralgia. Family reports no acute changes in cognition or baseline functional status. The patient follows regularly with Dr. Jimenez (Cardiology); last echocardiogram six months ago was normal. He has been medication compliant. In the ED, the patient was evaluated by neurology. NIHSS score was 2, indicating a minor stroke. CT head and CTA head/neck were negative for acute hemorrhage or large vessel occlusion. He was given an aspirin loading dose and started on clopidogrel loading. The plan is to initiate aspirin 81 mg daily tomorrow. MRI brain has been ordered to confirm ischemia, and echocardiogram has been ordered to assess for cardioembolic sources. He has no recent seizures, and his lamotrigine regimen continues without adjustment. There is no recent history of bleeding, anticoagulant use, or new medications, except his chronic antihypertensive and seizure medications. Family and patient are aware of the suspected stroke, ongoing investigations, and plan for inpatient observation, neuroimaging, cardiac evaluation, and secondary prevention measures. Allergies: Coded Allergies: No Known Allergies (Unverified , 12/03/24) Home Medications Home Medications Active Lidoderm (Lidocaine) 5 % Adh..patch 1 Patch TOP DAILY 10 Days may wear up to 12 hours Reported Diltiazem ER (Diltiazem HCl) 120 Mg Cap.er.12h 1 Cap PO DAILY 30 Days Aspirin EC (Aspirin) 81 Mg Tablet.dr 1 Tab PO DAILY 30 Days Aleve Pm Caplet (Naproxen Na-Diphenhydramin HCl) 1 Each Tablet 2 Tab PO Plavix (Clopidogrel Bisulfate) 75 Mg Tablet 75 Mg PO DAILY Do not stop medication unless instructed by prescriber. Msm Glucosamine Complex Tab (Gluc Hcl/Msm/C/Mn/[place]/Ging) 1 Each Tablet 1 Each PO DAILY Lamotrigine 100 Mg Tablet 200 Mg PO BID Past Medical History Past Medical History Transient ischemic attacks: 2 episodes: 2013, 2015 Osteoarthritis Seizures Thyroid nodules Hypertension Retinal detachment Carpal tunnel syndrome Cataract Past Surgical History Surgical History Comment 2019-cataract surgery 2018-right eye surgery for retinal detachment 1984-five back surgery 2001: hernia surgery 2009-carpal tunnel syndrome left and right wrist surgeries 2018-thumb joint replacement Family History Family History: Patient reports no known family medical history. Past Social History Social History Comment Denied smoking Occasional alcohol use Denied illicit use of drugs Lives at home with Follows up with: Dr. Jimenez-job checker Dr. Manning-orthopedician Dr. Gonzáles-orthopedician Dr. Dumont: For hernia surgery Dr. Husain: Orthopedician Dr. Crocker:Television Production Clerk Dr. Arreaga at [place] for thyroid nodules Alcohol Use: None Drug Use: None Lives with: Spouse Lives In: Home ROS ROS Constitutional: No fever, chills, dizziness, weight gain or loss Eyes: No pain, erythema, discharge, blurring of vision ENT: No sore throat, epistaxis, tinnitus Cardiovascular: No Chest pressure, chest discomfort, palpitations, syncope, lower extremity edema, paroxysmal nocturnal dyspnea Respiratory: No Shortness of breath and cough present, No hemoptysis Gastrointestinal: Normal appetite. No nausea, vomiting, diarrhea, constipation, hematemesis, abdominal pain, bloating, melena or fresh blood Musculoskeletal:chronmic edema. Integumentary: No change in skin, hair, nails. No swelling, bruising, abrasions Psychiatric: No delusions, depression, loss of interest in normal activity or change in sleep pattern, hallucinations, suicidal ideations Endocrine: No fatigue, weakness, polydipsia, polyuria, change in appetite, heat or cold intolerance, sweating, dry skin Hematological: No bleeding, petechiae, bruising Allergies: No asthma or urticaria Constitutional: Denies: fever Neurological: Reports: left sided numbness, left sided weakness Exam Vitals: Vital Signs Date Time Temp Pulse Resp B/P (MAP) Pulse Ox O2 Delivery O2 Flow Rate FiO2 01/04/25 16:12 18 97 Room Air 01/04/25 16:06 62 01/04/25 15:30 97.0 157/73 (101) 01/04/25 09:16 0 General: Awake , alert, and oriented x4, resting comfortably in the bed, in no acute distress HEENT: Atraumatic, normocephalic, EOMI, anicteric sclera ; pink conjunctiva Neck: Trachea midline. Supple, full range of motion, no JVD Cardiac: Regular rhythm, regular rate with no murmurs all over the precordium. Respiratory: Equal breath sounds bilaterally, no tachypnea, no wheezing ,rub or rales, Chest wall is symmetric and without deformity. Gastrointestinal: Abdomen symmetric, non-distended, soft, non-tender, normal bowel sounds x4 quadrant, normoactive, no hepatosplenomegaly Musculoskeletal: No pedal edema, no cyanosis Skin: Warm and dry CERAMICS ARTIST: Mental Status: Alert and oriented 3. Speech fluent, no dysarthria or aphasia. Cranial Nerves: CN IIXII grossly intact Pupils equal and reactive, extraocular movements intact. Motor: Right upper and lower extremities: 5/5 strength. Left upper and lower extremities: 4/5 strength. Muscle tone normal, no spasticity. No pronator drift on right; mild pronator drift on left upper extremity. Reflexes: Deep tendon reflexes 2+ and symmetric in upper and lower extremities, except slightly brisker on left side. Babinski negative bilaterally. Sensation: Intact Coordination: Tvyccv-eh-tvyf and myet-rs-oeof normal NIHSS Components: Level of consciousness: 0 Best gaze: 0 Visual leary: 0 Facial palsy: 1 (minor) Motor Arm: Right 0, Left 1 Motor Leg: Right 0, Left 1 Limb Ataxia: 0 Sensory: 1 (mild left-sided numbness) Language: 0 Dysarthria: 0 Extinction/inattention: 0 Overall NIHSS: 2 Diagnostic Data Last Recorded Lab Results: 01/04/25 0924 01/04/25 0924 Diagnostic Data: Laboratory Tests Test 01/04/25 09:24 Prothrombin Time 10.2 SECONDS (9.0-12.0) INR International Normalized Ratio 1.0 INR Activated Partial Thromboplast Time 27 SECONDS (22-32) Coagulation Comments Advance Care Planning Advanced Care plannin - 30 Minutes Additional Plan 1. Acute Ischemic Stroke (suspected, minor, NIHSS 2) / TIA-like presentation Sudden onset left facial numbness, left-sided weakness, and imbalance. CT/CTA head & neck negative for hemorrhage or LVO. NIHSS 2. Plan: Neurology was consulted, appreciate recommendations MRI brain ordered to confirm ischemic stroke and rule out mimics. Continue dual antiplatelet therapy (DAPT): Aspirin 81 mg daily + Clopidogrel 75 mg daily for 2190 days (per neurology). Echocardiogram with bubble study to evaluate for cardioembolic source. Cardiac telemetry for atrial fibrillation (consider Holter outpatient if negative inpatient). Lipid panel, HbA1c, TSH, CBC, CMP for vascular risk stratification. Consider PCSK9 inhibitor or ezetimibe due to statin intolerancediscuss with cardiology. PT/OT evaluation for balance and gait stability. Stroke education and secondary prevention counseling. 2. Hypertension Previously on Lopressor, now on diltiazem (unclear reason for switch). BP on admission not specified. Plan: Maintain permissive hypertension in acute stroke phase (target <220/120 unless receiving thrombolysis). Continue diltiazem 120 mg after 48 hours of following permissive hypotension Outpatient follow-up for BP management post-acute phase. 3. History of Seizure Disorder On lamotrigine, seizure-free for years. No seizure activity reported at presentation. Plan: Continue lamotrigine at current dose. Monitor for post-stroke seizure risk. 4. Hyperlipidemia / Statin Intolerance Reports prior arthralgia on statins. No current lipid-lowering therapy documented. Plan: Lipid panel ordered We will non-statin therapy (ezetimibe, PCSK9 inhibitor) if LDL >70 mg/dL. Discuss alternative agents with cardiology outpatient 5. Secondary Stroke Prevention / Risk Factor Optimization Plan: Antiplatelet therapy as above. Optimize BP, lipid, glucose control. Code Status: Full code DVT Prophylaxis: SCDs Line/tubes: P IV Nutrition: Patient passed bedside swallow test, regular diet PT: Ordered Prognosis: Guarded Disposition: Admit to ortho floor with telemetry monitoring. Alena Miller MD Internal Medicine Resident, PGY-2 Date of Service: Jan 04, 2025 Billing Provider: AMBER ORANTES MD,ALENA, RES Jan 04, 2025 17:40
[2025-01-04 18:30] VITALS: BP 153/88; PULSE 60; RESP 11; TEMP 97.3; O2SAT 98
--- NOTE | 2025-01-04 18:39 | CARDIOLOGY REPORT ---
APPROVED REPORT EXAM: Comprehensive 2D, Doppler, and color-flow Echocardiogram with saline. Patient Location: ED11 Heart Rate: 57 bpm Rhythm: NSR Indications CEREBRAL VASCULAR ACCIDENT EVALUATE FOR PFO RADIUS CORNER MACHINE OPERATOR: Bonilla JEAN BAPTISTE MD PRIOR ECHOCARDIOGRAM: 12/27/2019 [facility] EF 55%; m CLVH; m AV SCLEROSIS; m MAC; tr TR; tr TR; ASC AO DI LITATION; RVSP 31 mmHg. 2D Dimensions RVDd 3.5 cm IVSd 1.3 (0.7-1.1cm) LVDd 5.7 cm PWd 1.2 (0.7-1.1cm) IVSs 1.7 (0.8-1.2cm) LVDs 4.0 (2.5-4.0cm) PWs 1.6 (0.8-1.2cm) LVOT Diameter 2.01 (1.8-2.4cm) LVEF(%) 55.0 (>50%) FS (%) 29.0 % SV 87.5 ml CO 4.7 L/min M-Mode Dimensions Left Atrium(MM) 3.95 (2.5-4.0cm) Aortic Root 4.07 (2.2-3.7cm) Aortic Cusp Exc 2.01 (1.5-2.0cm) Aortic Valve AoV Peak Julio Cesar. 117.0 cm/s AoV VTI 23.1 cm AO Peak GR. 5.5 mmHg AO Mean GR. 3 mmHg LVOT VTI 17.74 cm LVOT Peak Julio Cesar. 95.9 cm/s JUAN JOSÉ(VTI)/BSA 2.44 cm2/m2 JUAN JOSÉ (VTI) 2.44 cm2 Mitral Valve MV E Velocity 46.0 cm/s MV Peak Gr. 1 mmHg MV A Velocity 82.5 cm/s MV PHT 64 ms E/A Ratio 0.6 MVA (PHT) 3.44 cm2 MV VMax61.0 cm/s Tricuspid Valve TR P. Velocity 202 cm/s RAP ESTIMATE 5 mmHg TR Peak Gr. 16 mmHg RVSP 21 mmHg LEFT VENTRICLE Normal LV size and function. Mild concentric hypertrophy. LVEF is 55%. RIGHT VENTRICLE RV is normal size and function. ATRIA The left atrium size is normal. The right atrium size is normal. Saline study was performed with 3 IV injections of 10 ccs of agitated normal saline at rest, with cough, and with valsalva. Positive sali ne study for right to left flow. AORTIC VALVE Trileaflet AV appears mildly sclerotic without stenosis. No insufficiency. MITRAL VALVE Mild mitral annular calcification without stenosis. Trace regurgitation. TRICUSPID VALVE TV appears structurally normal with trace regurgitation. PULMONIC VALVE Pulmonic valve is not well visualized. GREAT VESSELS The aortic root is normal in size. PERICARDIUM Normal pericardium. No effusion. Other Information Study Quality: Adequate Conclusion Normal LV size and function. Mild concentric hypertrophy. LVEF is 55%. RV is normal size and function. The left atrium size is normal. The right atrium size is normal. Saline study was performed with 3 IV injections of 10 ccs of agitated normal saline at rest, with cough, and with valsalva. Positive sali ne study for right to left flow. Trileaflet AV appears mildly sclerotic without stenosis. No insufficiency. Mild mitral annular calcification without stenosis. Trace regurgitation. TV appears structurally normal with trace regurgitation. Normal pericardium. No effusion.
--- NOTE | 2025-01-04 18:51 | RADIOLOGY REPORT ---
EXAM: MR MRI HEAD INDICATION: stroke TECHNIQUE: Multiplanar, multisequence imaging of the brain without contrast. COMPARISON: CT CTA NECK/HEAD on DOS: 01/04/25 FINDINGS: [PARENCHYMA]: No acute infarct or hemorrhage. No mass effect or herniation. No abnormal susceptibilit y weighted artifact. There are moderate to severe confluent and scattered periventricular and centrum semiovale T2/FLAIR hyperintensities, which are nonspecific but most likely represent chronic microva scular ischemic change. [VENTRICLES]: No hydrocephalus. [EXTRA-AXIAL SPACES]: No extra-axial fluid collections. [FLOW VOIDS]: The flow voids are intact. [EXTRA-CRANIAL STRUCTURES]: The bony structures are intact. Visualized portions of the paranasal sinu ses and mastoid air cells are essentially clear. Prior cataract surgery. IMPRESSION: 1. No MR evidence of an acute infarction.
[2025-01-04] MEDS: K and/or MAG REPLACEMENT MC SCH (19:31)
[2025-01-04] MEDS: docusate sod 100mg capsule PO SCH (19:32)
[2025-01-04 22:00] VITALS: BP 155/78; PULSE 64; RESP 14; TEMP 98.1; O2SAT 99
[2025-01-05 02:07] VITALS: BP 167/91; PULSE 63; RESP 11; TEMP 97.8; O2SAT 99
[2025-01-05 05:01] LABS: MEAN PLATELET VOLUME 7.5 FL (7.4-10.4); RED CELL DISTRIBUTION WIDTH 14.0 % (11.5-14.5)
[2025-01-05 05:53] LABS: CHOL/HDL RATIO 5.3 (0.00-4.99); CREATININE 0.79 MG/DL (0.60-1.10); LDL CHOLESTEROL 169 MG/DL (50-100); TOTAL CARBON DIOXIDE 25.6 MMOL/L (24-32); eCRCL 72 ML/MIN; eGFR > 90 ML/MIN
[2025-01-05 06:00] VITALS: BP 152/103; PULSE 72; RESP 17; TEMP 98.5; O2SAT 98
[2025-01-05 08:00] VITALS: RESP 17; O2SAT 98
[2025-01-05 10:00] VITALS: BP 165/94; PULSE 71; RESP 13; TEMP 97.6; O2SAT 97
--- NOTE | 2025-01-05 11:23 | PROGRESS NOTE- Residence ---
Progress Note - Resident Providers to CC ~ Objective Vital Signs Date Time Temp Pulse Resp B/P (MAP) Pulse Ox O2 Delivery O2 Flow Rate FiO2 01/05/25 08:00 17 98 Room Air 01/05/25 06:00 98.5 72 152/103 (119) 01/04/25 09:16 0 Result Diagram: 01/05/25 0425 01/05/25 0425 Coagulation Studies Laboratory Tests Test 01/04/25 09:24 Prothrombin Time 10.2 SECONDS (9.0-12.0) INR International Normalized Ratio 1.0 INR Activated Partial Thromboplast Time 27 SECONDS (22-32) Coagulation Comments Advance Care Planning Advanced Care plannin - 30 Minutes ALENA MILLER, RES Jan 05, 2025 11:23
[2025-01-05] MEDS ORDERED: EZET10TA48 PO (11:34)
[2025-01-05] MEDS ORDERED: CLOP75TA34 PO (11:34)
--- NOTE | 2025-01-05 12:28 | DISCHARGE SUMMARY-Residence ---
Discharge Summary Providers to Resident Creating Document: ALENA MILLER, RES ~ Discharge Summary Admission Diagnosis: Stroke Hospital Course DATE OF ADMISSION: 01/04/25 DATE OF DISCHARGE: 01/05/25 PATIENT VERY EAGER TO GO HOME TODAY WITH HIS Discharge Diagnosis\Comment: 1. High-grade TIA (NIHSS 2) 2. Hypertension 3. History of Seizure Disorder 4. Hyperlipidemia / Statin Intolerance Operations\Procedures: None Consultants: Neurology Complications: None Condition on DC: Stable New Medications: Clopidogrel Bisulfate (Clopidogrel) 75 Mg Tablet 75 MG PO DAILY for 21 Days, #21 TAB Do not stop medication unless instructed by prescriber. Ezetimibe (Ezetimibe) 10 Mg Tablet 10 MG PO DAILY for 30 Days, #30 TAB Continued Medications: Aspirin (Aspirin EC) 81 Mg Tablet.dr 1 TAB PO DAILY for 30 Days, #30 TAB Diltiazem HCl (Diltiazem ER) 120 Mg Cap.er.12h 1 CAP PO DAILY for 30 Days, #30 CAP 0 Refills Gluc Hcl/Msm/C/Mn/[place]/Ging (Msm Glucosamine Complex Tab) 1 Each Tablet 1 EACH PO DAILY Lamotrigine (Lamotrigine) 100 Mg Tablet 200 MG PO BID Lidocaine (Lidoderm) 5 % Adh..patch 1 PATCH TOP DAILY for 10 Days, #10 PATCH 0 Refills may wear up to 12 hours Discharge Summary: HPI as per admitting physician: A 74-year-old male with a history of two prior TIAs (2013, 2015), seizure disorder (diagnosed 13 years ago, controlled on lamotrigine), and hypertension who presented to the emergency department with acute-onset left-sided weakness and numbness. On the morning of presentation, while washing his car, he suddenly developed numbness of the left side of his face and weakness of the left arm and leg, leading to a loss of balance and a fall. He did not hit his head or lose conscio usness. The event occurred at approximately 8:00 AM, and the patient arrived at the ED at 8:30 AM. He reports persistent numbness and weakness on the left side at presentation, along with mild left facial droop. There were no associated symptoms of headache, vision changes, slurred speech, chest pain, palpitations, shortness of breath, or bowel/bladder incontinence. His prior medical history includes: TIA (2013, 2016): resolved without residual deficits. Seizure disorder: on lamotrigine, seizure-free for 13 years. Hypertension: previously on Lopressor, currently on diltiazem (patient unsure of reason for switch). Hyperlipidemia: history of statin intolerance due to arthralgia. Family reports no acute changes in cognition or baseline functional status. The patient follows regularly with Dr. Jimenez (Cardiology); last echocardiogram six months ago was normal. He has been medication compliant. In the ED, the patient was evaluated by neurology. NIHSS score was 2, indicating a minor stroke. CT head and CTA head/neck were negative for acute hemorrhage or large vessel occlusion. He was given an aspirin loading dose and started on clopidogrel loading. The plan is to initiate aspirin 81 mg daily tomorrow. MRI brain has been ordered to confirm ischemia, and echocardiogram has been ordered to assess for cardioembolic sources. He has no recent seizures, and his lamotrigine regimen continues without adjustment. There is no recent history of bleeding, anticoagulant use, or new medications, except his chronic antihypertensive and seizure medications. Family and patient are aware of the suspected stroke, ongoing investigations, and plan for inpatient observation, neuroimaging, cardiac evaluation, and secondary prevention measures. Hospital course: The patient presented with acute-onset left-sided weakness and numbness. Symptoms began around 8:00 AM and persisted upon arrival to the ED at 8:30 AM. Initial neurological exam revealed mild left-sided weakness (4/5) and decreased sensation. NIHSS was 2. CT head and CTA head/neck were unremarkable for hemorrhage or large vessel occlusion. MRI brain performed during admission showed no evidence of acute infarction, supporting a diagnosis of transient ischemic attack (TIA). Neurology was consulted and recommended dual antiplatelet therapy (aspirin + clopidogrel for 21 days, then aspirin monotherapy) and initiation of high-intensity lipid-lo wering therapy. The patient has a history of statin intolerance; therefore, ezetimibe was initiated for LDL reduction (LDL 169, cholesterol 245, triglycerides 117 on admission). Blood pressure was managed with permissive hypertension during the acute phase; his home antihypertensives will be resumed at discharge. Telemetry during hospitalization revealed first-degree AV block only, without atrial fibrillation or other arrhythmias. However, given his history of paroxysmal atrial fibrillation and cryptogenic TIA presentation, outpatient extended event monitoring (1430 days) was recommended to evaluate for recurrent AF. The patient remained clinically stable, regained near-baseline strength, and is being discharged home in stable condition with outpatient follow-up. Imaging: Head CT: No acute intracranial abnormality. CTA head and neck: 1. CTA head demonstrates no evidence of large vessel occlusion, aneurysm, or significant stenosis. 2. CTA neck demonstrates no evidence of carotid or vertebral dissection or significant stenosis. 3. Thyroid nodule as described above. Further evaluation with ultrasound recommended per ACR white paper on incidentally detected thyroid nodules. MRI head: No MR evidence of an acute infarction. Echocardiogram: Normal LV size and function. Mild concentric hypertrophy. LVEF is 55%. RV is normal size and function. The left atrium size is normal. The right atrium size is normal. Saline study was performed with 3 IV injections of 10 ccs of agitated normal saline at rest, with cough, and with valsalva. Positive saline study for right to left flow. Trileaflet AV appears mildly sclerotic without stenosis. No insufficiency. Mild mitral annular calcification without stenosis. Trace regurgitation. TV appears structurally normal with trace regurgitation. Normal pericardium. No effusion. Physical examination today: Awake , alert, and oriented x4, resting comfortably in the bed, in no acute distress HEENT: Atraumatic, normocephalic, EOMI, anicteric sclera ; pink conjunctiva Neck: Trachea midline. Supple, full range of motion, no JVD Cardiac: Regular rhythm, regular rate with no murmurs all over the precordium. Respiratory: Equal breath sounds bilaterally, no tachypnea, no wheezing ,rub or rales, Chest wall is symmetric and without deformity. Gastrointestinal: Abdomen symmetric, non-distended, soft, non-tender, normal bowel sounds x4 quadrant, normoactive, no hepatosplenomegaly Musculoskeletal: No pedal edema, no cyanosis Skin: Warm and dry [employer] examination: Mental Status: Alert and oriented 3. Speech fluent, no dysarthria or aphasia. Cranial Nerves: CN IIXII grossly intact Pupils equal and reactive, extraocular movements intact. Motor: Right upper and lower extremities: 5/5 strength. Left upper and lower extremities: 4/5 strength. Muscle tone normal, no spasticity. No pronator drift on right; mild pronator drift on left upper extremity. Reflexes: Deep tendon reflexes 2+ and symmetric in upper and lower extremities, except slightly brisker on left side. Babinski negative bilaterally. Sensation: Intact Coordination: [id number] and [id number] normal Laboratory Tests Test 01/04/25 09:23 01/04/25 09:24 01/05/25 04:25 Glucometer 104 mg/dl White Blood Count 3.5 X10'3 4.0 X10'3 Red Blood Count 5.14 X10'6 4.98 X10'6 Hemoglobin 15.6 g/dl 15.0 g/dl Hematocrit 45.8 % 44.2 % Mean Corpuscular Volume 89.1 FL 88.8 FL Mean Corpuscular Hemoglobin 30.3 PG 30.0 PG Mean Corpuscular Hemoglobin Concent 34.0 g/dL 33.8 g/dL Red Cell Distribution Width 13.8 % 14.0 % Platelet Count 269 X10'3 256 X10'3 Mean Platelet Volume 7.3 FL 7.5 FL Neutrophils (%) (Auto) 51.8 % 60.4 % Lymphocytes (%) (Auto) 30.4 % 24.1 % Monocytes (%) (Auto) 14.3 % 12.5 % Eosinophils (%) (Auto) 2.3 % 2.3 % Basophils (%) (Auto) 1.2 % 0.7 % Neutrophils # (Auto) 1.8 X10'3 2.4 X10'3 Lymphocytes # (Auto) 1.1 X10'3 1.0 X10'3 Monocytes # (Auto) 0.5 X10'3 0.5 X10'3 Eosinophils # (Auto) 0.1 X10'3 0.1 X10'3 Basophils # (Auto) 0.0 X10'3 0.0 X10'3 CBC Comment Prothrombin Time 10.2 SECONDS INR International Normalized Ratio 1.0 INR Activated Partial Thromboplast Time 27 SECONDS Coagulation Comments Sodium Level 138 MMOL/L 140 MMOL/L Potassium Level 4.1 MMOL/L 4.5 MMOL/L Chloride Level 105 MMOL/L 106 MMOL/L Carbon Dioxide Level 25.1 MMOL/L 25.6 MMOL/L Anion Gap 8 8 Blood Urea Nitrogen 11 MG/DL 10 MG/DL Creatinine 0.80 MG/DL 0.79 MG/DL Estimated GFR/1.73 m2 > 90 ML/MIN > 90 ML/MIN BUN/Creatinine Ratio 13.8 12.7 Glucose Level 111 MG/DL 107 MG/DL Hemoglobin A1c 5.8 % Calcium Level 9.1 MG/DL 8.9 MG/DL Albumin 3.9 G/DL 3.4 G/DL Thyroid Stimulating Hormone (TSH) 1.88 ulU/ml Chemistry Comments Magnesium Level 2.2 MG/DL Total Bilirubin 0.4 MG/DL Aspartate Amino Transf (AST/SGOT) 18 U/L Alanine Aminotransferase (ALT/SGPT) 23 U/L Alkaline Phosphatase 65 IU/L Total Protein 6.4 G/DL Globulin 3.0 G/DL Albumin/Globulin Ratio 1.1 Triglycerides Level 117 MG/DL Cholesterol Level 245 MG/DL LDL Cholesterol 169 MG/DL HDL Cholesterol 46 MG/DL Cholesterol/HDL Ratio 5.3 PATIENT VERY EAGER TO GO HOME TODAY WITH HIS Advise on discharge: - continue aspirin 81 mg indefinitely, clopidogrel 75 mg for 21 days - initiated ezetimibe 10 mg for deranged lipid panel, please follow up with primary care provider and repeat lipid panel in a month - LDL goal less than 70 - patient is intolerant to Lipitor, hence started a different class of medication-ezetimibe; however please follow up with PCP to see if he can tolerate other class of statins like rosuvastatin or pravastatin - call 911/go to the nearby ED if any emergencies - Cardiology within 24 weeks for review of event monitor results *Problems/Diagnosis: (1) TIA Status: Acute Total Time Spent on D/C: > 30 Minutes Date of Service: Jan 05, 2025 Billing Provider: JERRY MCGARRY MD, GAURAV, OSCAR Jan 05, 2025 12:11 JERRY MCGARRY MD Jan 05, 2025 19:01
== END 2025-01-05 12:21 | disposition home or self-care (01) | DRG 69 ==
LOC: ER 09:10 → ED HOLD 11:32 → ORTHO 4S 15:25
PROVIDERS: ADMIT Internal Medicine; ATTEND Internal Medicine
PROC: B3251ZZ Computerized Tomography (CT Scan) of Bilateral Common Carotid Arteries using Low Osmolar Contrast (ICD-10-PCS; principal; 2025-01-04)
PROC: B32G1ZZ Computerized Tomography (CT Scan) of Bilateral Vertebral Arteries using Low Osmolar Contrast (ICD-10-PCS; 2025-01-04)
PROC: B32R1ZZ Computerized Tomography (CT Scan) of Intracranial Arteries using Low Osmolar Contrast (ICD-10-PCS; 2025-01-04)
PROC: B3281ZZ Computerized Tomography (CT Scan) of Bilateral Internal Carotid Arteries using Low Osmolar Contrast (ICD-10-PCS; 2025-01-04)
DX: G45.9 Transient cerebral ischemic attack, unspecified (principal); E78.00 Pure hypercholesterolemia, unspecified; Z79.82 Long term (current) use of aspirin; Z79.01 Long term (current) use of anticoagulants; Z79.899 Other long term (current) drug therapy
CPT/HCPCS: 36415; 70450; 70496; 70498; 70551; 71045; 80048; 80053; 80061; 82948; 83036; 83735; 84443; 85025; 85610; 85730; 87081; 93005; 93306; 97161; 97530; 99291; G0378; J2060; J7030; Q9967

== ENCOUNTER 2025-02-21 06:55 | Day surgery (SDC) | payer MEDICARE, OTHER ==
[2025-02-16 10:51] LABS: MEAN PLATELET VOLUME 7.5 FL (7.4-10.4); PRE OP HEMATOCRIT 45.0 % (42.0-52.0); PRE OP HEMOGLOBIN 15.1 g/dL (14.0-17.9); PRE OP PLATELET COUNT 274 X10'3 (140-440); PRE OP WHITE BLOOD COUNT 4.2 10'3 (4.8-10.8); RED CELL DISTRIBUTION WIDTH 13.9 % (11.5-14.5)
[2025-02-16 11:02] LABS: CREATININE 0.88 MG/DL (0.60-1.10); PRE OP ALT 33 U/L (30-65); PRE OP ANION GAP 7 (8-16); PRE OP AST 24 U/L (10-37); PRE OP BILIRUB, TOTAL 0.4 MG/DL (0.0-1.0); PRE OP GLUCOSE 113 MG/DL (70-104); PRE OP POTASSIUM 4.2 MMOL/L (3.4-5.1); PRE OP SODIUM 140 MMOL/L (135-145); TOTAL CARBON DIOXIDE 27.8 MMOL/L (24-32); eGFR 84 ML/MIN
[2025-02-21] VITALS (8 sets, daily range): BP systolic 138–177; BP diastolic 86–94; PULSE 58–79; RESP 13–16; TEMP 97.5–98.2; O2SAT 93–98
[~2025-02-21] VITALS: Ht 167.6 cm; Wt 74.5 kg
[2025-02-21] MEDS: ceFAZolin 2gm/dext,iso 50mL 50 ML IV ONE (05:30)
[~2025-02-21 06:55] MED LIST changes: +ACET-3414 PO; +APIX5TAB3 PO; -ASPI81TA52 PO; -CLOP75TA15 PO; +DILT120C20 PO; +EZET10TA80 PO; -GLUC1TAB40 PO; -LIDO-52 TOP; -LOP25T PO; +LOSA-415 PO; -MULT-1141 PO; -NAPR1TAB28 PO; -OMEG1CAP61 PO
[2025-02-21] MEDS: ringers solution, lacted 1,000 ML IV SCH (08:14)
[2025-02-21] MEDS ORDERED: fentaNYL/PF 50MCG/1 ML 2ML syringe ONE (08:55)
[2025-02-21] MEDS ORDERED: midazolam 1 mg/ML 2ml injection ONE (08:57)
[2025-02-21] MEDS ORDERED: LIDOcaine 0.5% (5mg/ml) 50ml vial ONE (08:59)
[2025-02-21] MEDS: BUPIVAcaine/PF 2.5mg/ml (0.25%) 10ml vial IJ ONE (09:14)
[2025-02-21] MEDS ORDERED: propofol 10mg/ml 20ml vial IV ONE (09:14)
--- NOTE | 2025-02-21 11:08 | OPERATIVE REPORT ---
Operative Report Providers to ~ Date of Procedure: Feb 21, 2025 Pre-Operative Diagnosis: Left thumb carpometacarpal joint arthritis Post-Operative Diagnosis SAME as PRE-Op Procedure Performed Left thumb carpometacarpal joint suspension plasty with the anchorline suture anchors Surgeon: Joseph Gonzáles MD Decorating Consultant None Anesthesiologist: Yosef Elizabeth Type of Anesthesia: Regional Findings: Prosthetics\Implants used: Vanleer line corkscrew implant Estimated Blood Loss: None Specimen Removed: None Description of Procedure: This patient is a 75 year old man with fairly significant left thumb carpometacarpal joint arthritis. Surgery is indicated to improve function after failure of conservative treatment. Risks and benefits were discussed with the patient. Some of the risks and involved with this type of procedure include but are not limited to infection, bleeding, nerve damage, numbness over the surgical site, thumb stiffness and inc omplete relief of pain. Patient agreed to proceed. The patient was brought to the operating room where the anesthetic and anti biotics were given. The arm was prepped and draped in usual manner and proper timeout procedure was observed. Curved incision was made over the thumb dorsal metacarpal curving over to the volar wrist crease. Flaps were elevated nerves were protected. An arthrotomy was made around the trapezium which was then removed using the sagittal saw and rongeur. We utilized the ANCHOR LINE CMC corkscrew anchor system to stabilize the thumb CMC. Under fluoroscopic guidance to the guidepin was advanced obliquely from the base of the second metacarpal heading distally. This was then replaced by the first corkscrew implant. Second drill hole was made vertically in the base of the metacarpal and the second corkscrew was placed. The suture line was then tensioned appropriately and tightened down and then tied off. This completed the SUSPENSIONPLASTY. This was done under fluoroscopy and then motion was checked under fluoroscopy and showed good motion at the CMC joint and excellent suspension of the metacarpal. Incision was irrigated and closed in layers. Marcaine was injected and a sterile dressing was applied including a splint. The tourniquet was released and perfused well. The patient was taken to the recovery room in stable condition and tolerated the procedure well. Counts repoted as correct: Yes JOSEPH GONZÁLES Jr., MD Feb 21, 2025 11:08
== END 2025-02-21 10:24 | disposition home or self-care (01) ==
LOC: PAS 06:55
PROVIDERS: ATTEND Orthopaedic Surgery Hand Surgery
DX: M18.12 Unilateral primary osteoarthritis of first carpometacarpal joint, left hand (principal); I10 Essential (primary) hypertension; E11.9 Type 2 diabetes mellitus without complications; G47.30 Sleep apnea, unspecified; G40.909 Epilepsy, unspecified, not intractable, without status epilepticus; Z86.73 Personal history of transient ischemic attack (TIA), and cerebral infarction without residual deficits; Z79.01 Long term (current) use of anticoagulants; Z79.899 Other long term (current) drug therapy; Z98.890 Other specified postprocedural states; Z88.5 Allergy status to narcotic agent
CPT/HCPCS: 25448; 36415; 80053; 82948; 85025; A4215; A4618; A6449; A7000; C1713; J2003; J2250; J2704; J3010; J3490; J7030; J7120; Z7506; Z7512; Z7610